=== PATIENT | male | born 1965 | race Caucasian/White ===

== ENCOUNTER 2018-06-14 18:42 | Emergency (ER) | payer SELFPAY ==
[2018-06-14 18:50] VITALS: BP 120/80
[2018-06-14] MEDS ORDERED: DELTASONE PO ONE (19:05)
--- NOTE | 2018-06-14 19:05 | Emergency Department Report ---
Minor Respiratory - HPI Chief Complaint: Upper Respiratory Infection Stated Complaint: E/N/T PAIN/TONGUE Time Seen by Provider: 06/14/18 18:52 Duration: 3 Days Pain Location: Other (head) Severity: mild Minor Respiratory: Yes Rhinorrhea, Yes Able to Tolerate Fluids, Yes Cough, No Sore Throat, No Ear Pain, No Sick Contacts, No Hemoptysis, No Chest Pain, No Shortness of Breath, No Fever Other History: his is a 63-year-old male here reports that he has thrush on his tongue ears and nose. That he was told this by the [facility] when he went to donate and he also said that they told him that he has some in his nose. Patient reports headache, loss of appetite, cough runny nose 3 days. Pain is throughout attend to his head. Denies any nasal pain. They also told him that his ears had wax in it. She reports some dizziness assessment ongoing from 06/12/2017. She reports cough gets worse at night for 3 days. Denies any fever or chills or nausea or vomiting. His last HIV test was one month ago. It is intermittent to head and located the front of his head. Denies any chest pain or shortness of breath. ED Review of Systems ROS: Stated complaint: E/N/T PAIN/TONGUE Other details as noted in HPI Constitutional: denies: chills, fever Eyes: denies: eye pain, eye discharge ENT: throat pain, congestion, other (reports rash and wax buildup.). denies: ear pain, dental pain, hearing loss, epistaxis Respiratory: denies: cough, shortness of breath, wheezing Cardiovascular: denies: chest pain, palpitations, edema, syncope Gastrointestinal: denies: abdominal pain, nausea, vomiting, diarrhea, constipation, hematemesis, melena, hematochezia Genitourinary: denies: urgency, dysuria, frequency, hematuria Musculoskeletal: denies: back pain, joint swelling, arthralgia, myalgia Skin: denies: rash Neurological: headache. denies: weakness, numbness, paresthesias, confusion, abnormal gait, vertigo ED Past Medical Hx - Past Medical History Previous Medical History?: Yes Hx Heart Attack/AMI: Yes - Surgical History Past Surgical History?: Yes Hx Coronary Stent: Yes (2015) - Family History Family history: hypertension - Social History Smoking Status: Current Every Day Smoker Substance Use Type: Alcohol - Medications Home Medications: Home Medications Medication Instructions Recorded Confirmed Last Taken Type Cetirizine HCl [ZyrTEC] 10 mg PO QAM 14 Days #14 capsule 06/14/18 Unknown Rx Fluticasone [Flonase] 1 spray NS QDAY 14 Days #1 bottle 06/14/18 Unknown Rx Ibuprofen [Motrin] 600 mg PO Q8H PRN #12 tablet 06/14/18 Unknown Rx methylPREDNISolone [Medrol Dose 4 mg PO DAILY #1 tab.ds.pk 06/14/18 Unknown Rx Darrell] Minor Respiratory Exam - Exam General: Vital signs noted. No distress. Alert and acting appropriately. This is a 53-year-old male well-nourished well-developed in no acute distress HEENT: Yes Moist Mucous Membranes, Yes Rhinorrhea, No Pharyngeal Erythema, No Pharyngeal Exudates, No Conjuctival Injection, No Frontal Tenderness, No Maxillary Tenderness Ear: Neither TM Bulge (cerumen of that to bilateral ear canal without any impaction. Color is on the colored in nature), Neither TM Erythema, Neither EAC Pain, Neither EAC Discharge Neck: Yes Supple (full range of motion), No Adenopathy Lungs: Yes Good Air Exchange, No Wheezes, No Ronchi, No Stridor, No Cough, No Labored Respirations, No Retractions, No Use of Accessory Muscles, No Other Abnormal Lung Sounds Heart: Yes Regular, No Murmur Abdomen: Yes Normal Bowel Sounds (normal bowel sounds in all quadrants), No Tenderness (nontender the palpation in all quadrants), No Peritoneal Signs Skin: No Rash, No Edema Neurologic: Alert and oriented, 3. No deficits. Musculoskeletal: Unremarkable. No cce. + 2 pulses in all extremities, no neurovascular compromise ED Course Vital Signs 06/14/18 18:47 Temperature 98 F Pulse Rate 77 Respiratory 18 Rate Blood Pressure 120/80 O2 Sat by Pulse 99 Oximetry - Reevaluation(s) Reevaluation #1: 06/14/18 19:47 She given Deltasone 60 mg when necessary emergency room for pain for nasal congestion and polyps. ED Medical Decision Making - Medical Decision Making This is a 53-year-old male here with several complaints. His signs have wax in his ears but this was normal wax. He has right nasal polyps which she will be treated with steroids. He will also be referred to ear nose and throat doctor. Patient has no thrush noted. He has yellowish colored to time which is removable with tongue blade. Bilateral nasal mucosa congested and erythema. Patient with upper respiratory congestion, right nasal polyp. I discussed the patient's his diagnosis, clinical findings and treatment plan. He was given Deltasone 60 mg. Emergency room for pain. Patient discharged home in stable condition with a prescription for Medrol Dosepak, Flonase, Motrin and Zyrtec. Critical care attestation.: If time is entered above; I have spent that time in minutes in the direct care of this critically ill patient, excluding procedure time. ED Disposition Clinical Impression: Upper respiratory infection, acute, Nasal polyp Disposition: TO HOME OR SELFCARE Is pt being admited?: No Does the pt Need Aspirin: No Condition: Stable Instructions: Upper Respiratory Infection (ED) Additional Instructions: Please take Medrol Dosepak as instructed YOU will need to follow up with ear nose and throat regard and right nasal polyp Follow-up with primary care doctor in 3 days and if he do not have a primary care doctor follow-up with outside Medical Center Take medication as prescribed Referrals: GRISELDA KNOX MD [Staff Physician] - 2-3 Days [facility] [Outside] - 2-3 Days Forms: Work/School Release Form(ED), Accompanied Note
== END 2018-06-14 20:28 | disposition home or self-care (01) ==
LOC: ED 18:42
DX: J06.9 Acute upper respiratory infection, unspecified (principal); J33.9 Nasal polyp, unspecified; I25.2 Old myocardial infarction; F17.200 Nicotine dependence, unspecified, uncomplicated; Z95.5 Presence of coronary angioplasty implant and graft
CPT/HCPCS: 99282; J7512